=== PATIENT | female | born 1990 | race Asian ===

== ENCOUNTER 2018-08-04 17:23 | Emergency (ER) | payer OTHER ==
--- NOTE | 2018-08-04 18:38 | RADIOLOGY REPORT (SQ) ---
EXAM DESCRIPTION: CHEST 2 VIEWS COMPLETED DATE/TIME: 08/04/2018 6:04 pm REASON FOR STUDY: hemoptysis COMPARISON: None. EXAM PARAMETERS: NUMBER OF VIEWS: two views TECHNIQUE: Digital Frontal and Lateral radiographic views of the chest acquired. RADIATION DOSE: NA LIMITATIONS: none FINDINGS: LUNGS AND PLEURA: No opacities, masses or pneumothorax. No pleural effusion. MEDIASTINUM AND HILAR STRUCTURES: No masses or contour abnormalities. HEART AND VASCULAR STRUCTURES: Heart normal size. No evidence for failure. BONES: No acute findings. HARDWARE: None in the chest. OTHER: No other significant finding. IMPRESSION: NO ACUTE RADIOGRAPHIC FINDING IN THE CHEST. TECHNICAL DOCUMENTATION: JOB ID: [id number] [employer]- All Rights Reserved Reading location - IP/workstation name: [email or web address]
--- NOTE | 2018-08-04 20:16 | ER Document Report ---
ED Medical Screen (RME) - General Chief Complaint: Other Stated Complaint: COUGHING UP BLOOD Time Seen by Provider: 08/04/18 20:14 Mode of Arrival: Ambulatory Information source: Patient TRAVEL OUTSIDE OF THE [place] IN LAST 30 DAYS: No - HPI Patient complains to provider of: hemoptysis Onset: Yesterday - pt. with hemoptysis starting yesterday. - Related Data Allergies/Adverse Reactions: No Known Allergies Allergy (Unverified 08/04/18 17:25) Physical Exam - Vital signs Vitals: Temp Pulse Resp BP Pulse Ox 99.3 F 77 16 105/68 97 08/04/18 17:32 08/04/18 17:32 08/04/18 17:32 08/04/18 17:32 08/04/18 17:32 Course - Vital Signs Vital signs: Temp Pulse Resp BP Pulse Ox 99.3 F 77 16 105/68 97 08/04/18 17:32 08/04/18 17:32 08/04/18 17:32 08/04/18 17:32 08/04/18 17:32
[2018-08-04 21:21] LABS: ABSOLUTE EOSINOPHILS # (AUTO) 0.1 10^3/uL (0.0-0.6); ABSOLUTE LYMPHOCYTES (AUTO) 1.3 10^3/uL (0.5-4.7); ABSOLUTE MONOCYTES (AUTO) 0.8 10^3/uL (0.1-1.4); ABSOLUTE NEUT (AUTO) 2.4 10^3/uL (1.7-8.2); BASOPHILS % (AUTO) 0.5 % (0-2); EOSINOPHILS % (AUTO) 2.6 % (0-6); HEMATOCRIT 39.2 % (36.0-47.0); HEMOGLOBIN 13.5 g/dL (12.0-15.5); LYMPHOCYTES % (AUTO) 28.2 % (13-45); MEAN CORPUSCULAR HEMOGLOBIN 32.9 pg (27.0-33.4); MEAN CORPUSCULAR HGB CONC 34.3 g/dL (32.0-36.0); MEAN CORPUSCULAR VOLUME 96 fl (80-97); MONOCYTES % (AUTO) 17.3 % (3-13); PLATELET COUNT 172 10^3/uL (150-450); RED BLOOD COUNT 4.09 10^6/uL (3.72-5.28); RED CELL DISTRIBUTION WIDTH 12.1 % (11.5-14.0); SEGMENTED NEUTROPHILS % (AUTO) 51.4 % (42-78); TOTAL CELLS COUNTED % (AUTO) 100 %; WHITE BLOOD COUNT 4.7 10^3/uL (4.0-10.5)
[2018-08-04 21:42] LABS: ALANINE AMINOTRANSFERASE 28 U/L (9-52); ALBUMIN 4.3 g/dL (3.5-5.0); ALKALINE PHOSPHATASE 45 U/L (38-126); ANION GAP 10 (5-19); ASPARTATE AMINO TRANSFERASE 27 U/L (14-36); BILIRUBIN,DIRECT 0.2 mg/dL (0.0-0.4); BILIRUBIN,TOTAL 0.3 mg/dL (0.2-1.3); BLOOD UREA NITROGEN 15 mg/dL (7-20); CALCIUM 9.9 mg/dL (8.4-10.2); CARBON DIOXIDE 27 mmol/L (22-30); CHLORIDE 103 mmol/L (98-107); GLUCOSE 86 mg/dL (75-110); POTASSIUM 4.1 mmol/L (3.6-5.0); SODIUM 139.7 mmol/L (137-145); TOTAL PROTEIN 7.4 g/dL (6.3-8.2)
--- NOTE | 2018-08-04 22:47 | ER Document Report ---
ED General - General Chief Complaint: Other Stated Complaint: COUGHING UP BLOOD Time Seen by Provider: 08/04/18 20:14 Primary Care Provider: BEVERLY IZAGUIRRE [Primary Care Provider] - Follow up as needed Mode of Arrival: Ambulatory Notes: Patient is a 28-year-old female who presents with complaints of spitting up some blood. Patient says on Tuesday she had a fever. Tuesday she also had limited fever but then by fever gone away. She also had a sore throat at that time. She continued to have intermittent sore throat and then on she noticed that when she brushes her teeth little bit of blood came out when she spit. Today she ate a piece of celery when she swallowed it she felt that scratch against the back of her throat and this caused a bit of pain and then she recalls her to spit up a little bit more blood. She has not had any further blood since then. She has not had any further fevers. She has not had any actual coughing. She is from [place]. She moved here 9 months ago. She says she is pretty sure she got vaccinations as a child. TRAVEL OUTSIDE OF THE [place] IN LAST 30 DAYS: No - Related Data Allergies/Adverse Reactions: No Known Allergies Allergy (Unverified 08/04/18 17:25) Past Medical History - General Information source: Patient - Social History Smoking Status: Never Smoker Chew tobacco use (# tins/day): No Frequency of alcohol use: None Drug Abuse: None Family History: Reviewed & Not Pertinent Patient has suicidal ideation: No Patient has homicidal ideation: No Renal/ Medical History: Denies: Hx Peritoneal Dialysis Review of Systems - Review of Systems Notes: My Normal Review Basic REVIEW OF SYSTEMS: CONSTITUTIONAL : Fever 2-3 days ago. EENT: Sore throat. CARDIOVASCULAR: Denies chest pain. RESPIRATORY: Denies cough, cold, or chest congestion. Denies shortness of breath, difficulty breathing, or wheezing. GASTROINTESTINAL: Denies abdominal pain. Denies nausea, vomiting, or diarrhea. MUSCULOSKELETAL: Denies neck or back pain or joint pain or swelling. SKIN: Denies rash or skin lesions. NEUROLOGICAL: Denies altered mental status or loss of consciousness. Denies headache. Denies weakness or paralysis or loss of use of either side. Denies problems with gait or speech. Denies sensory or motor loss. ALL OTHER SYSTEMS REVIEWED AND NEGATIVE. Physical Exam - Vital signs Vitals: Temp Pulse Resp BP Pulse Ox 99.3 F 77 16 105/68 97 08/04/18 17:32 08/04/18 17:32 08/04/18 17:32 08/04/18 17:32 08/04/18 17:32 - Notes Notes: General Appearance: Well nourished, alert, cooperative, no acute distress, no obvious discomfort. Well-appearing. Vitals: reviewed, See vital signs table. Eyes: PERRL, EOMI, Conjuctiva clear Mouth: No decreasd moisture Throat: No tonsillar inflammation, No airway obstruction, No lymphadenopathy Neck: Supple, no neck tenderness, No thyromegaly Lungs: No wheezing, No rales, No rhonci, No accessory muscle use, good air exchange bilaterally. Heart: Normal rate, Regular rythm, No murmur, no rub Extremities: good pulses in all extremities, no swelling or tenderness in the extremities, no edema. Skin: warm, dry, appropriate color, no rash Neuro: speech clear, oriented x 3, normal affect, responds appropriately to questions. Course - Re-evaluation Re-evalutation: 08/05/18 06:53 On evaluation I do not see anything concerning on pharyngeal exam. X-ray was obtained. I did review the x-ray with radiologist talked on the phone as I felt there was some abnormal calcification in the larynx however the neurologist that this is a normal variant. Patient's blood work is completely normal. There apparently was some concern for TB amongst triage nurse per the patient. I do not suspect TB as the patient does not have actual respiratory symptoms. She is not coughing up blood. She actually has sensation of a sore throat when she ate something firm this caused more pain in her throat and she spit up some blood. She has had no true coughing. She did have recent fever. 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 Patient clinically looks well. Chest x-ray is negative and shows no evidence of anything that would be concerning for TB. I encouraged patient eat soft foods. I encouraged her return to ER if she has recurrent spitting up of blood, fevers, difficulty breathing or swallowing, or if she feels unwell. Patient agrees with plan and will be discharged home. Dictation of this chart was performed using voice recognition software; therefore, there may be some unintended grammatical errors. - Vital Signs Vital signs: Temp Pulse Resp BP Pulse Ox 98.0 F 65 18 123/65 100 08/05/18 00:06 08/05/18 00:06 08/05/18 00:06 08/05/18 00:06 08/05/18 00:06 - Laboratory Result Diagrams: 08/04/18 20:45 08/04/18 20:45 Laboratory results interpreted by me: 08/04/18 20:45 Monocytes % 17.3 H Discharge - Discharge Clinical Impression: Sore throat, Spitting up blood Condition: Good Disposition: HOME, SELF-CARE Additional Instructions: Please avoid any foods that are hard or crunchy. Please eat only soft foods. Currently your blood work and your x-ray does not show any concerning findings. I suspect you have an irritation to your throat which could be related to recent viral infection. Treatment is with acetaminophen or ibuprofen. This will help with any pain or swelling. Please take the liquid form so it does not irritate your throat. Please have a low threshold to return to ER if you have recurring episodes of spitting up blood, recurrent fevers, worsening pain in her throat, difficulty breathing, or difficulty swallowing. Follow-up with a doctor on Tuesday for reevaluation. You are welcome to come here for reevaluation if you do not have a doctor to follow-up with. Referrals: LOCALMD,NO [Primary Care Provider] - Follow up as needed
--- NOTE | 2018-08-04 23:40 | RADIOLOGY REPORT (SQ) ---
CLINICAL HISTORY: sore throat COMPARISON: None. TECHNIQUE: XR NECK SOFT TISSUE on 08/04/2018 10:56 PM CDT This exam was performed according to our departmental dose-optimization program, which includes automated exposure control, adjustment of the mA and/or kV according to patient size and/or use of iterative reconstruction technique. FINDINGS: There is no acute fracture. Alignment is anatomic. Disc spaces are maintained. Vertebral body heights are preserved. Soft tissues are unremarkable. IMPRESSION: No acute fracture or subluxation.
[2018-08-05 00:07] VITALS: BP 123/65
== END 2018-08-05 00:04 | disposition home or self-care (01) ==
LOC: ER 17:23
DX: R04.2 Hemoptysis (principal); J02.9 Acute pharyngitis, unspecified
CPT/HCPCS: 36415; 70360; 71046; 80053; 85025; 99283